=== PATIENT | female | born 1955 | race Caucasian/White ===

== ENCOUNTER 2025-08-22 10:18 | Emergency (ER) | payer MEDICARE, OTHER ==
[~2025-08-22] VITALS: Ht 160 cm; Wt 75.0 kg
[2025-08-22 10:39] VITALS: TEMP 97.9
[2025-08-22 11:21] LABS: PLATELET COUNT (AUTO) 124 K/uL (150-450); RED BLOOD CELL COUNT(AUTO) 4.23 MIL/uL (4.00-5.20); RED CELL DISTRIBUTION WIDTH 14.9 % (11.5-14.5); WHITE BLOOD COUNT (AUTO) 4.0 K/uL (4.5-11.0)
[2025-08-22 11:28] LABS: CALCIUM, TOTAL 8.8 mg/dL (8.8-10.5); CREATININE 0.85 mg/dL (0.60-1.30); GLOMERULAR FILTR. RATE CALC > 60 mL/min (>60); GLUCOSE,RANDOM 93 mg/dL (70-110); SODIUM SERUM 141 mmol/L (136-145); UREA NITROGEN, BLOOD 13 mg/dL (7-18)
[2025-08-22 12:01] LABS: APPEARANCE,URINE CLEAR (CLEAR); GLUCOSE, URINE (UA) NEGATIVE (NEGATIVE); LEUKOCYTE ESTERASE ,URINE NEGATIVE (NEGATIVE); NITRATE,URINE NEGATIVE (NEGATIVE); OCCULT BLOOD,URINE NEGATIVE (NEGATIVE); SPECIFIC GRAVITIY, URINE 1.010 (1.003-1.030)
[2025-08-22 15:55] VITALS: BP 122/78; PULSE 74; RESP 16; O2SAT 97
[2025-08-22] MEDS ORDERED: POLY17PO62 PO (16:04)
== END 2025-08-22 16:35 | disposition home or self-care (01) ==
LOC: EMS 10:18
DX: K59.00 Constipation, unspecified (principal); R10.84 Generalized abdominal pain; R11.0 Nausea
CPT/HCPCS: 74176; 80048; 81003; 83690; 85025; 99285